=== PATIENT | female | born 1970 | race Caucasian/White ===

== ENCOUNTER 2017-10-18 14:37 | Emergency (ER) | payer SELFPAY ==
[2017-10-18 15:19] VITALS: TEMP 99.7
[2017-10-18] MEDS ORDERED: ONDANSETRON INJ 4 MG/2 ML VIAL ONE (15:52)
--- NOTE | 2017-10-18 16:41 | ED.PDOC ---
History of Present Illness - General Chief Complaint: Skin/Abrasion/Tear Stated Complaint: red; swollen skin to abdomen Time Seen by Provider: 10/18/17 16:29 Source: patient Exam Limitations: no limitations - History of Present Illness Initial Comments: Maggei Fraser 47 y/o female stated that skin suprapubic area getting red for the last 2 1/2 days.Denies fever/chills,nausea or vomiting.No chronic medical problem.Had gastric bypass and abdominoplasty 12 years ago but had some skin drainage small part of surgical site since procedure. Timing/Duration: other - see hpi Severity: moderate Location: torso - lower abdomen Improving Factors: nothing Worsening Factors: nothing Associated Symptoms: other - see hpi Allergies/Adverse Reactions: Allergies Sulfa Antibiotics Allergy (Verified 10/18/17 15:08) Home Medications: Ambulatory Orders Acetamin W/Cod #3 Tab [Tylenol w/CODEINE #3] 1 ea PO TID PRN #10 tab 10/18/17 Clindamycin HCl 300 mg PO TID 10 Days #30 cap 10/18/17 Review of Systems - Review of Systems Constitutional: States: no symptoms reported EENTM: States: no symptoms reported Respiratory: States: no symptoms reported Cardiology: States: no symptoms reported Gastrointestinal/Abdominal: States: no symptoms reported Musculoskeletal: States: no symptoms reported Skin: States: see HPI Past Medical History (General) - Patient Medical History Hx Stroke: No Hx Asthma: No Hx Cardiac Disorders: No Hx Diabetes: No Surgical History: cholecystectomy, gastric bypass - abdominoplasty, other - abdominoplasty,hysterectomy - Vaccination History Immunizations Up to Date: No - Social History Hx Depression: No Feels Threatened In Home Enviroment: No - Activities of Daily Living Patient Lives Alone: No Family Medical History - Family History Mother Family History: No Known Hx Family Diabetes: Yes - mom Hx Family Cancer: Yes - mom -Thyroid,breast Physical Exam - Physical Exam General Appearance: Alert, Comfortable, No apparent distress Eyes, Ears, Nose, Throat Exam: normal ENT inspection Neck: non-tender, full range of motion, supple Cardiovascular/Chest: normal peripheral pulses, regular rate, rhythm, no murmur Respiratory: lungs clear, normal breath sounds Gastrointestinal/Abdominal: normal bowel sounds, non tender, soft, no organomegaly Neurologic: alert, oriented x 3 Skin Exam: warm/dry, normal color Skin Problem Location: torso - lower abdominal area Skin Character: erythema, other - dry area of chronic pencil tip sized sinus tract skin Progress - Progress Progress: 10/18/17 16:46 Vital Signs - 8 hr 10/18/17 15:09 Temperature 99.7 F H Pulse Rate [ 77 left brachial] Respiratory 20 Rate Blood Pressure 145/85 [left brachial] O2 Sat by Pulse 99 Oximetry Departure - Departure Clinical Impression: Panniculitis Time of Disposition: 16:48 Disposition: Discharge to Home or Self Care Condition: Fair Departure Forms: ED Discharge - Pt. Copy, Patient Portal Self Enrollment Referrals: [facility] [Primary Care Provider] - 1-2 Weeks Prescriptions: Acetamin W/Cod #3 Tab [Tylenol w/CODEINE #3] 1 ea PO TID PRN #10 tab PRN Reason: Pain Clindamycin HCl 300 mg PO TID 10 Days #30 cap Home Medications: Ambulatory Orders Acetamin W/Cod #3 Tab [Tylenol w/CODEINE #3] 1 ea PO TID PRN #10 tab 10/18/17 Clindamycin HCl 300 mg PO TID 10 Days #30 cap 10/18/17 Additional Instructions: Follow up with your primary Md 20 October 2017
[2017-10-18] MEDS ORDERED: CLINDAMYCIN HCL CAP 150 MG CAP PO ONE (16:46)
[2017-10-18] MEDS ORDERED: CLINDAMYCIN PHOSPHATE 150 MG/ML VIAL IM ONE (16:46)
[2017-10-18] MEDS ORDERED: TETANUS,DIPHTHERIA,PERTUSSIS 1 EA SYG IM ONE (16:46)
[2017-10-18 17:52] VITALS: BP 139/77; O2SAT 93
== END 2017-10-18 17:50 | disposition home or self-care (01) ==
LOC: ER 14:37
DX: M79.3 Panniculitis, unspecified (principal); Z98.84 Bariatric surgery status; Z88.2 Allergy status to sulfonamides; Z23 Encounter for immunization
CPT/HCPCS: 90471; 90715; J3490